=== PATIENT | male | born 1995 | race Caucasian/White ===

== ENCOUNTER 2018-11-10 02:24 | Emergency (ER) | payer SELFPAY ==
[2018-11-10] MEDS ORDERED: KETOROLAC 15 MG/1 ML SDV IVP ONE (02:36)
[2018-11-10] MEDS ORDERED: ONDANSETRON 4 MG/2 ML VIAL IVP ONE (02:36)
[2018-11-10] MEDS ORDERED: NS 1,000 ML IV ONE ×2 (02:36→03:17)
--- NOTE | 2018-11-10 02:37 | EDPHY ---
H & P Stated Complaint: Abd pain since 2329, vomiting, nausea Time Seen by Provider: 11/10/18 02:31 HPI/ROS: Chief Complaint: Abdominal pain, nausea, vomiting HPI: 23-year-old male had a sudden onset of upper abdominal crampy abdominal pain nausea and multiple episodes of vomiting over the last few hours. His roommate had the same thing yesterday. No blood or coffee-grounds in his vomit. Pain is crampy and in his left upper abdomen. No fevers or chills. No diarrhea or constipation. No history of abdominal surgeries. Pain comes in waves, is dull. Currently about a 7/10. No history of the same. Has a history of chronic migraines. No daily medications. ROS: 10 systems were reviewed and were negative except those elements noted in the HPI. PMH: Migraine headaches Social History: Occasional E cigarette, occasional alcohol, none recently Family History: non-contributory Physical Exam: Gen: Awake, Alert, No Distress HEENT: Nose: no rhinorrhea Eyes: PERRLA, EOMI Mouth: Moist mucosa Neck: Supple, no JVD Chest: nontender, lungs clear to auscultation Heart: S1, S2 normal, no murmur Abd: Soft, mild left upper and epigastric tenderness, no guarding Back: no CVA tenderness, no midline tenderness Ext: no edema, non-tender Skin: no rash Neuro: CN II-XII intact, Sensation grossly intact, Strength 5/5 in bilateral upper and lower extremities - Personal History Current Tetanus Diphtheria and Acellular Pertussis (TDAP): Unsure - Medical/Surgical History Hx Asthma: No Hx Chronic Respiratory Disease: No Hx Diabetes: No Hx Cardiac Disease: No Hx Renal Disease: No Hx Cirrhosis: No Hx Alcoholism: No Hx HIV/AIDS: No Hx Splenectomy or Spleen Trauma: No Other PMH: Chronic migraines - Social History Smoking Status: Never smoked Constitutional: Initial Vital Signs Temperature (C) 37.1 C 11/10/18 02:27 Heart Rate 93 11/10/18 02:27 Respiratory Rate 18 11/10/18 02:27 Blood Pressure 124/78 H 11/10/18 02:27 O2 Sat (%) 95 11/10/18 02:27 O2 Delivery Mode Room Air Allergies/Adverse Reactions: No Known Allergies Allergy (Unverified 02/22/19 02:27) Home Medications: Medication Instructions Recorded Ondansetron Odt [Zofran Odt 4 mg 4 mg PO Q4 PRN #10 tab 11/10/18 (*)] Medical Decision Making ED Course/Re-evaluation: Laboratory evaluations noted. Patient has a leukocytosis but I think this is likely secondary to vomiting. Remainder of his tests are negative. He is feeling improved after antiemetics fluids and analgesia. Abdomen is soft. He has some mild epigastric tenderness but otherwise a nonsurgical abdomen. No lower abdominal tenderness. He is tolerating p.o.. Plan will be for discharge with follow-up as an outpatient. He has been cautioned however that if his pain is worsening or not improved in 12 hr he should return to the emergency depart for recheck. I do not see any evidence of acute intra-abdominal surgical process at this time. - Data Points Laboratory Results: Laboratory Results 11/10/18 02:45 11/10/18 02:45 11/10/18 11/10/18 02:45 02:45 WBC 18.54 10^3/uL H 10^3/uL (3.80-9.50) RBC 5.63 10^6/uL 10^6/uL (4.40-6.38) Hgb 17.0 g/dL g/dL (13.7-17.5) Hct 48.3 % % (40.0-51.0) MCV 85.8 fL fL (81.5-99.8) MCH 30.2 pg pg (27.9-34.1) MCHC 35.2 g/dL g/dL (32.4-36.7) RDW 12.5 % % (11.5-15.2) Plt Count 261 10^3/uL 10^3/uL (150-400) MPV 9.8 fL fL (8.7-11.7) Neut % (Auto) 86.8 % H % (39.3-74.2) Lymph % (Auto) 6.6 % L % (15.0-45.0) [place] % (Auto) 5.9 % % (4.5-13.0) Eos % (Auto) 0.2 % L % (0.6-7.6) Baso % (Auto) 0.2 % L % (0.3-1.7) Nucleat RBC Rel Count 0.0 % % (0.0-0.2) Absolute Neuts (auto) 16.10 10^3/uL H 10^3/uL (1.70-6.50) Absolute Lymphs (auto) 1.22 10^3/uL 10^3/uL (1.00-3.00) Absolute Monos (auto) 1.09 10^3/uL H 10^3/uL (0.30-0.80) Absolute Eos (auto) 0.03 10^3/uL 10^3/uL (0.03-0.40) Absolute Basos (auto) 0.04 10^3/uL 10^3/uL (0.02-0.10) Absolute Nucleated RBC 0.00 10^3/uL 10^3/uL (0-0.01) Immature Gran % 0.3 % % (0.0-1.1) Immature Gran # 0.06 10^3/uL 10^3/uL (0.00-0.10) Sodium 139 mEq/L mEq/L (135-145) Potassium 4.4 mEq/L mEq/L (3.5-5.2) Chloride 104 mEq/L mEq/L (97-110) Carbon Dioxide 26 mEq/l mEq/l (22-31) Anion Gap 9 mEq/L mEq/L (6-14) BUN 17 mg/dL mg/dL (7-23) Creatinine 0.8 mg/dL mg/dL (0.7-1.3) Estimated GFR > 60 Glucose 97 mg/dL mg/dL (70-100) Calcium 9.4 mg/dL mg/dL (8.5-10.4) Total Bilirubin 1.1 mg/dL mg/dL (0.1-1.4) AST 40 IU/L IU/L (17-59) ALT 39 IU/L IU/L (21-72) Alkaline Phosphatase 46 IU/L IU/L (38-126) Total Protein 8.0 g/dL g/dL (6.3-8.2) Albumin 4.7 g/dL g/dL (3.5-5.0) Lipase 200 IU/L IU/L (23-300) Medications Given: Discontinued Medications Fentanyl (Sublimaze) 50 mcg IVP EDNOW ONE Stop: 11/10/18 03:33 Last Admin: 11/10/18 03:39 Dose: 50 mcg Sodium Chloride (Ns) 1,000 mls @ 0 mls/hr IV ONCE ONE; Wide Open PRN Reason: Protocol Stop: 11/10/18 02:37 Last Admin: 11/10/18 02:48 Dose: 1,000 mls Sodium Chloride (Ns) 1,000 mls @ 0 mls/hr IV ONCE ONE; Wide Open PRN Reason: Protocol Stop: 11/10/18 03:18 Last Admin: 11/10/18 03:38 Dose: 1,000 mls Ketorolac Tromethamine (Toradol) 15 mg IVP EDNOW ONE Stop: 11/10/18 02:37 Last Admin: 11/10/18 02:47 Dose: 15 mg Ondansetron HCl (Zofran) 4 mg IVP EDNOW ONE Stop: 11/10/18 02:37 Last Admin: 11/10/18 02:47 Dose: 4 mg Departure - Departure Disposition: Home, Routine, Self-Care Clinical Impression: Abdominal pain, Acute gastroenteritis Condition: Good Instructions: Gastroenteritis (ED) Additional Instructions: Follow up with primary care physician in 2-3 days for further evaluation. If you're abdominal pain does not improve or gets worse return to the emergency department in 12 hr for recheck. Referrals: ORAL CHAPARRO [Other] - As per Instructions Prescriptions: Ondansetron Odt [Zofran Odt 4 mg (*)] 4 mg PO Q4 PRN #10 tab PRN Reason: nausea
[2018-11-10 02:59] LABS: PLATELET COUNT 261 10^3/uL (150-400)
[2018-11-10] MEDS ORDERED: fentaNYL 100 MCG/2 ML INJ IVP ONE (03:32)
[2018-11-10 05:14] VITALS: BP 99/71
== END 2018-11-10 05:12 | disposition home or self-care (01) ==
DX: K52.9 Noninfective gastroenteritis and colitis, unspecified (principal); R10.9 Unspecified abdominal pain
CPT/HCPCS: 96374; J1885; J2405; J3010